=== PATIENT | male | born 1960 | race Caucasian/White ===

== ENCOUNTER 2022-01-03 11:51 | Day surgery (SDC) | payer MEDICARE ==
--- NOTE | 2022-01-03 09:44 | HP ---
DATE OF SURGERY: 01/03/2022 HISTORY OF PRESENT ILLNESS: The patient is a 61-year-old with bulge right inguinal area, some aches and pains that has been going on for a month or two. Lifting when started. No prior repair. PAST MEDICAL HISTORY: Chronic obstructive pulmonary disease. PAST SURGICAL HISTORY: He denied any prior inguinal hernia repair. MEDICATIONS: Albuterol, Montelukast, Breztri. ALLERGIES: NKDA. FAMILY HISTORY: Negative in regards to this problem. SOCIAL HISTORY: No smoking or alcohol abuse. REVIEW OF SYSTEMS: Fourteen systems reviewed. No chest pain or palpitations. Other systems negative or noncontributory as above and per preadmission questionnaire. PHYSICAL EXAMINATION: GENERAL: No acute distress. HEENT: Sclerae nonicteric. NECK: No JVD. CHEST: Equal excursion, nonlabored breathing. Symmetrical breath sounds, decreased bilaterally consistent with chronic obstructive pulmonary disease. CVS: Regular rate and rhythm. ABDOMEN: Soft. No peritoneal signs. EXTREMITIES: No significant edema. NEURO: Alert, oriented, moving extremities symmetrically. PSYCH: Appropriate mood and affect. IMPRESSION: Right inguinal hernia. I feel he would benefit from repair. He was discussed laparoscopic versus open repair. I had a long discussion with the patient. He preferred to proceed with open repair. General risk of bleeding or infection, risk of hematoma or seroma formation, risk of black, blue and bruising, risk of ingrown hair, suture reaction or mesh infection possibly requiring removal. Risk of aches, pains, burning, numbness lower abdomen, thigh or scrotal area possible retirement or chronic in nature up to 10-12%. He also understands the moderate risk of recurrence particularly given his chronic obstructive pulmonary disease and chronic lung disease. He understands all of the above but not limited to. He prefers to proceed with open repair approach, will proceed with open right inguinal hernia repair with mesh as an outpatient.
[~2022-01-03 11:51] MED LIST: Lactated Ringers 1,000 ML IV ONE; Sensorcaine 0.25% 10 ML ONE
[2022-01-03] MEDS ORDERED: CEFAZOLIN 2 GM-D5W BAG** 2 GM/50 ML ML IV SCH (13:00)
[2022-01-03] MEDS ORDERED: Lactated Ringers 1,000 ML IV SCH (13:00)
[2022-01-03] MEDS ORDERED: Decadron 4 MG INJ ONE ×2 (14:04→15:38)
[2022-01-03] MEDS ORDERED: Zemuron 100 MG/10 ML ONE ×2 (14:04→14:14)
[2022-01-03] MEDS ORDERED: BRIDION 200MG/2ML IV ONE (14:04)
[2022-01-03] MEDS ORDERED: TORAdol 30 mg Injection ONE (14:04)
[2022-01-03] MEDS ORDERED: DIPRIVAN 200 MG/20 ML IV ONE (14:04)
[2022-01-03] MEDS ORDERED: SUBLIMAZE 100 MCG/2 ML ONE ×2 (14:04→16:20)
[2022-01-03] MEDS ORDERED: Xylocaine-Mpf 2% 5 Ml Vial ONE ×2 (14:04→15:38)
[2022-01-03] MEDS ORDERED: Zofran 4 MG/2 ML VIAL ONE (14:04)
[2022-01-03] MEDS ORDERED: Marcaine 0.5%/Epinephrine 10 ML ONE (15:38)
[2022-01-03] MEDS ORDERED: APRESOLINE 20 MG/ML INJ IV ONE (17:17)
[2022-01-03 17:29] VITALS: O2SAT 96
[2022-01-03 17:53] VITALS: BP 159/97; PULSE 80
--- NOTE | 2022-01-04 09:03 | OP ---
SURGERY DATE/TIME: 01/03/2022 3220 PREOPERATIVE DIAGNOSES: 1) Right inguinal hernia. 2) History of chronic obstructive pulmonary disease, chronic lung disease. POSTOPERATIVE DIAGNOSES: 1) Right inguinal hernia. 2) History of chronic obstructive pulmonary disease, chronic lung disease. PROCEDURE: Open repair right inguinal hernia with mesh. SURGEON: Dr. Jam Vaughn. STOCKKEEPER: Vadim Rodriguez, Medical Student III. ANESTHESIA: General. ESTIMATED BLOOD LOSS: Minimal. INDICATIONS: As noted above. Risks and benefits explained in detail and not limited to and consent obtained. The patient had been discussed options of robotic-assisted versus open repair. He preferred to proceed with open repair. The site had been marked in preoperative holding area. DESCRIPTION OF PROCEDURE AND FINDINGS: Taken to the operating room. General anesthesia induced. Abdomen prepped and draped in usual sterile fashion. After official time out and no disagreement with planned procedure, a transverse incision made right inguinal area. Dissection carried down through subcu. A couple subcu veins were divided and ligated with Vicryl ties. Dissection carried down through Emanuel fascia through the external oblique in the direction of its fibers towards the external ring protecting the visible ilioinguinal/iliohypogastric nerve branches. The patient had a direct hernia and small indirect component. Cremasteric fibers carefully . The tissue was quite weak given his chronic obstructive pulmonary disease. Cremasteric fibers he had a little bit of sliding of the appendix on the hernia sac this was carefully reduced down. The hernia sac was high ligated with some 0 PDS. Once this was accomplished, the direct hernia component was imbricated downwards with some running 0 PDS up to a more normal size internal ring. There was no other visible hernia sac. He did not appear to have any significantly large cord lipoma at this juncture. It was felt that he would benefit from mesh repair. A 2x4 precut keyhole mesh was carefully used, secured to the fascia overlying the pubic tubercle with 0 Prolene right along Moe's ligament with 0 Prolene along the shelving portion of the inguinal ligament laterally past the internal ring with 0 Prolene. The shelving portion of the inguinal ligament was quite weak but it is what he had available. The tails of the mesh tacked together laterally with 0 Prolene. Medial aspect of the mesh tacked to rectus fascia with 0 Prolene, 0 Vicryl used to transfix the mesh to the aponeurosis of the internal oblique with 0 Vicryl carefully avoiding the visible main branch of the iliohypogastric nerve. Tails of the mesh lying nice and flat in external oblique laterally. Mesh is nice and flat as available with this particular patient's body habitus. Good hemostasis noted. The new internal ring was felt to be not too tight. At this point the external wound is irrigated out. Good hemostasis noted. External oblique closed with 0 Vicryl. Emanuel closed with 3-0 Vicryl. Subcu closed with 3-0 Vicryl. Skin closed with 4-0 Vicryl. Steri-Strips and sterile dressing applied. The patient tolerated the procedure well. 0.25% Marcaine local had been injected along the skin incision back towards the origin of the inguinal nerve back towards the anterior iliac spine. There was no family to discuss the findings with out in the waiting area.
== END 2022-01-03 18:00 | disposition home or self-care (01) ==
LOC: SDC 11:51
PROVIDERS: ATTEND Surgery
DX: K40.90 Unilateral inguinal hernia, without obstruction or gangrene, not specified as recurrent (principal); Z87.09 Personal history of other diseases of the respiratory system
CPT/HCPCS: 49505; 64486; 76937; C1781; J0360; J0690; J1100; J1885; J2405; J2704; J3010

== ENCOUNTER 2023-05-04 05:58 | Day surgery (SDC) | payer MEDICARE ==
[~2023-05-04 05:58] MED LIST changes: +Ak-Dilate OPHTHALMIC*** 1.065 ML, Cyclogyl 1% OPHTH SOL 1.065 ML, GATIFLOXACIN 0.5% OPH... OP ONE; +BETADINE 5% OPHTHALMIC 30 ML OP ONE; -Lactated Ringers 1,000 ML IV ONE; +Lactated Ringers 1,000 ML IV SCH; +NON-FORMULARY ITEM OP ONE; -Sensorcaine 0.25% 10 ML ONE; +TETRACAINE 0.5% STERI-UNIT SOL OP ONE; +cefUROXime sodium 0.005 GM in Sodium Chloride Flush 30 ML*** 0.5 ML IJ ONE
[2023-05-04] MEDS ORDERED: Lactated Ringers 1,000 ML IV ONE (06:15)
[2023-05-04 06:49] VITALS: TEMP 98.2
[2023-05-04] MEDS ORDERED: DIPRIVAN 200 MG/20 ML IV ONE (07:54)
[2023-05-04] MEDS ORDERED: Versed 2 MG/2 ML Injection ONE (07:55)
[2023-05-04] MEDS ORDERED: SUBLIMAZE 100 MCG/2 ML ONE (07:55)
[2023-05-04] MEDS ORDERED: Epinephrine Preservative Free 1 MG/ML IJ ONE (08:00)
[2023-05-04 08:21] VITALS: RESP 16
[2023-05-04 08:24] VITALS: O2SAT 98
[2023-05-04 08:29] VITALS: PULSE 87
[2023-05-04 08:32] VITALS: BP 112/76
[2023-05-04] MEDS ORDERED: Zofran 4 MG/2 ML VIAL IV PRN (09:00)
[2023-05-04] MEDS ORDERED: ACETAZOLAMIDE 250 MG TABLET PO ONE (09:00)
== END 2023-05-04 08:44 | disposition home or self-care (01) ==
LOC: SDC 05:58
PROVIDERS: ATTEND Ophthalmology
DX: H25.812 Combined forms of age-related cataract, left eye (principal)
CPT/HCPCS: C1780; J0171; J2250; J2704; J3010; A9270-GY

== ENCOUNTER 2024-10-02 11:12 | Day surgery (SDC) | payer MEDICARE ==
[2024-10-02] MEDS ORDERED: dexAMETHasone sodium phosphate IJ ONE (11:13)
[2024-10-02] MEDS ORDERED: Sodium Chloride 0.9(Preservative Free) 10 ML IJ ONE (11:13)
[2024-10-02] MEDS ORDERED: propofoL IV ONE (13:28)
[2024-10-02] MEDS ORDERED: Sodium Chloride 0.9% 250 ML 500 ML IV ONE (14:13)
--- NOTE | 2024-10-02 16:33 | XRAY ---
Indication: Left L4-S1 transforaminal PETERSON. Intraoperative fluoroscopy provided for 24 seconds. 5 digital spot image submitted for interpretation demonstrates posterior needle tips projecting over expected left L4 and L5 nerve roots. Small amount of contrast injected for needle tip placement. Correlate with intraoperative findings/report.
--- NOTE | 2024-10-02 16:45 | XRAY ---
24 seconds of fluoroscopy was used in surgery for a left L4-S1 transforaminal PETERSON.
== END 2024-10-02 14:20 | disposition home or self-care (01) ==
LOC: SDC-PAIN 11:12
PROVIDERS: ATTEND Psychiatry & Neurology Pain Medicine
DX: M54.16 Radiculopathy, lumbar region (principal)
CPT/HCPCS: 64483; 64484; 72100; J1100; J2704; Q9966